=== PATIENT | male | born 1985 | race Caucasian/White ===

== ENCOUNTER 2022-03-06 17:19 | Emergency (ER) | payer OTHER, SELFPAY ==
--- NOTE | ~2022-03-06 | XR_ITS ---
EXAMINATION: XR CHEST CLINICAL INFORMATION: Chest pain COMPARISON: None TECHNIQUE: Frontal view of the chest was obtained. FINDINGS: The lungs are clear with no focal consolidation. No evidence of pneumothorax, pulmonary edema, or pleural effusions. The cardiomediastinal silhouette is unremarkable. No acute osseous findings. XR/XR chest 1V IMPRESSION: No acute cardiopulmonary findings.
[2022-03-06 17:21] VITALS: BP 144/90; PULSE 78; RESP 18; TEMP 36.3; O2SAT 100; BMI 24.3
--- NOTE | 2022-03-06 17:21 | ECG_ITS ---
Test Reason : CHEST PAIN Blood Pressure : / mmHG Vent. Rate : 087 BPM Atrial Rate : 087 BPM P-R Int : 146 ms QRS Dur : 086 ms QT Int : 346 ms P-R-T Axes : 052 039 039 degrees QTc Int : 416 ms Normal sinus rhythm Normal ECG No previous ECGs available Referred By: Generic ED Physician Electronically Signed By:ISAAC GOTTI
[2022-03-06 18:10] LABS: MANUAL DIFF FLAG NO
[2022-03-06 18:18] LABS: Basophils Percent Auto 0.6 % (0-2); Eosinophils Absolute Auto 0.1 X10*3/uL (0.0-0.4); Eosinophils Percent Auto 2.6 % (0-4); Hematocrit 41.8 % (42.0-52.0); Hemoglobin 14.5 g/dl (14.0-18.0); Imm Gran Abs Auto 0.01 X10*3/uL (0.00-0.03); Imm Gran Pct Auto 0.2 % (0.0-0.4); Lymphocytes Absolute Auto 1.8 X10*3/uL (1.2-4.9); Lymphocytes Percent Auto 36.5 % (20-40); Mean Corpuscular HGB Conc 34.7 g/dl (31.0-36.0); Mean Corpuscular Hemoglobin 32.7 pg (27.0-33.0); Mean Corpuscular Volume 94.4 fL (80.0-98.0); Mean Platelet Volume 10.4 fL (9.4-12.4); Monocytes Absolute Auto 0.4 X10*3/uL (0.1-1.2); Monocytes Percent Auto 6.9 % (2-11); Neutrophils Absolute Auto 2.7 x10*3/uL (2.0-8.3); Neutrophils Percent Auto 53.2 % (45-73); Platelet Count 162 X10*3/uL (160-400); Red Blood Count 4.43 X10*6/uL (4.60-5.80); Red Cell Distribution Width 11.9 % (11.0-16.0)
[2022-03-06 18:28] LABS: Alanine Aminotransferase 29 U/L (0-40); Albumin Level 4.3 g/dL (3.5-5.0); Alkaline Phosphatase 85 U/L (39-117); Anion Gap 13 (12-20); Aspartate Amino Transferase 29 U/L (5-37); Bilirubin Total 0.5 mg/dL (0.0-1.0); Blood Urea Nitrogen 14 mg/dL (9-16); Calcium 9.1 mg/dL (8.4-10.2); Carbon Dioxide 25 mmol/L (22-29); Chloride 109 mmol/L (96-108); Creatinine Clr Calc Pharmacy 113.2; Estimated Glomerular Filt Rate > 60; Glucose Random 118 mg/dL (60-115); Potassium 4.2 mmol/L (3.3-5.1); Sodium 143 mmol/L (135-145); Total Protein 7.1 g/dL (6.5-8.0)
[2022-03-06 18:32] LABS: Troponin-I High Sensitivity < 3.5 ng/L (<3.5-35.0)
[2022-03-06 19:32] VITALS: BP 127/62; PULSE 60; RESP 18; TEMP 36; O2SAT 98
[2022-03-07 00:41] VITALS: BP 151/86; PULSE 54; RESP 16; TEMP 36.4; O2SAT 97
--- NOTE | 2022-03-07 01:56 | ED.CHESTPAIN ---
HPI - Chest Pain General Chief Complaint: Chest Pain Stated Complaint: chest pain Time Seen by Provider: 03/07/22 01:15 Source: patient Mode of arrival: ambulatory Limitations: no limitations History of Present Illness HPI narrative: 37 yo male hx of anxiety here with c/o taking 3 doses of naprosyn yesterday then noted burning in his chest. He didn't feel well all day. He didn't go to work. He states this feels different from his prior anxiety. No recent travel or procedures. He took a negative home COVID test. MD complaint: chest pain Onset (ago): hour(s) (24) Timing of current episode: constant Prior episodes: Yes Onset: during rest Pain location: substernal Pain radiation: none Severity: moderate Quality: burning Relieving factors: nothing Exacerbating factors: nothing Context: other (started after taking 3 pill unknown mg of naprosyn) Treatment prior to arrival: none Related Data Previous Rx's Medication Instructions Recorded famotidine 20 mg tablet (Pepcid) 20 mg PO DAILY PRN abdominal 03/07/22 discomfort #30 tabs Allergies Allergy/AdvReac Type Severity Reaction Status Date / Time No Known Allergies Allergy Verified 03/06/22 17:22 Review of Systems Review of Systems: Constitutional : No Weight loss, No Fever, No Chills ENT/Mouth : No sore throat, No Rhinorrhea Eyes: No Eye Pain, No Swelling Cardiovascular : pos Chest Pain, pos SOB, no Dyspnea on Exertion, No Orthopnea, No Edema, No Palpitations Respiratory : No Cough, No Sputum Gastrointestinal : no Nausea, No Vomiting, No Diarrhea, No abdominal Pain, No Hematochezia, No Melena Genitourinary : No Dysuria, No Urinary Frequency Musculoskeletal : No joint pain, No Myalgias, No Joint Swelling Skin : No Skin Lesions, No rash Neuro : No Weakness, No Numbness, No Dizziness, No Headache Psych : No Anxiety/Panic, No Depression Heme/Lymph: No Bruising, No Lymphadenopathy Endocrine : No Polyuria, No Polydipsia All other systems reviewed and are negative [facility], [facility] Past Medical History Attestation statement: The following information was validated with the patient. Medical History Anxiety Social History Social History (Updated 03/07/22 @ 02:12 by Ann-Marie Michaela, DO) Patient Tobacco Use Status: Never used Tobacco Advance Directives: No Advance Directives Information Provided: No Physical Exam Vital Signs: Vital Signs: Last Vital Signs Temp 97.8 F 03/07/22 02:00 Pulse 57 03/07/22 02:00 Resp 16 03/07/22 02:00 BP 134/78 03/07/22 02:00 Pulse Ox 98 03/07/22 02:00 O2 Del Method 03/07/22 02:00 BMI result Body Mass Index 24.3 Appearance: Alert. Oriented X3. No acute distress. Anxious Eyes: Pupils equal, round and reactive to light. ENT: Pharynx normal. Neck: Normal inspection. Neck supple. CVS: Normal heart rate and rhythm. Pulses normal. Respiratory: No respiratory distress. Breath sounds normal. Abdomen: Soft and nontender. Skin: Skin warm and dry. Normal skin color. Normal skin turgor. Extremities: No lower extremity edema. No calf ttp Neuro: Oriented X 3. No motor deficit. No sensory deficit. Course Course Course Narrative: negative workup feels better stable for DC COVID negative MDM - Chest Pain MDM Narrative Medical decision making narrative: 37 yo male with anxiety here with atypical chest pain that is burning following naprosyn use - at this time PERC negative no ACS risk factors pain > 6 hours with nonischemic EKG and neg trop. He is PERC negative, distal pulses bounding doubt dissection - will obtain CXR and COVID swab. Treat for possible GI upset following naprosyn use. Lab Data Result diagrams: 03/06/22 18:06 03/06/22 18:06 Labs: Lab Results 03/06/22 03/06/22 03/06/22 Range/Units 18:06 18:06 18:06 WBC 5.0 (4.8-10.8) X10*3/uL RBC 4.43 L (4.60-5.80) X10*6/uL Hgb 14.5 (14.0-18.0) g/dl Hct 41.8 L (42.0-52.0) % MCV 94.4 (80.0-98.0) fL MCH 32.7 (27.0-33.0) pg MCHC 34.7 (31.0-36.0) g/dl RDW 11.9 (11.0-16.0) % Plt Count 162 (160-400) X10*3/uL MPV 10.4 (9.4-12.4) fL Immature Gran % (Auto) 0.2 (0.0-0.4) % Neut % (Auto) 53.2 (45-73) % Lymph % (Auto) 36.5 (20-40) % [place] % (Auto) 6.9 (2-11) % Eos % (Auto) 2.6 (0-4) % Baso % (Auto) 0.6 (0-2) % Lymph # (Auto) 1.8 (1.2-4.9) X10*3/uL [place] # (Auto) 0.4 (0.1-1.2) X10*3/uL Eos # (Auto) 0.1 (0.0-0.4) X10*3/uL Baso # (Auto) 0.0 (0.0-0.2) X10*3/uL Abs Immat Gran (auto) 0.01 (0.00-0.03) X10*3/uL Absolute Neuts (auto) 2.7 (2.0-8.3) x10*3/uL Absolute Nucleated RBC 0.000 (0.0-0.012) X10*3/uL Nucleated RBC % (auto) 0.0 (0.0-0.2) /100WBC Sodium 143 (135-145) mmol/L Potassium 4.2 (3.3-5.1) mmol/L Chloride 109 H (96-108) mmol/L Carbon Dioxide 25 (22-29) mmol/L Anion Gap 13 (12-20) BUN 14 (9-16) mg/dL Creatinine 0.94 (0.5-1.4) mg/dL Estim Creat Clear Calc 113.2 Estimated GFR > 60 Random Glucose 118 H (60-115) mg/dL Calcium 9.1 (8.4-10.2) mg/dL Total Bilirubin 0.5 (0.0-1.0) mg/dL AST 29 (5-37) U/L ALT 29 (0-40) U/L Alkaline Phosphatase 85 (39-117) U/L Troponin I High Sens < 3.5 (<3.5-35.0) ng/L Total Protein 7.1 (6.5-8.0) g/dL Albumin 4.3 (3.5-5.0) g/dL COVID-19 ([facility]) (Negative) COVID-19 Clin Com 03/07/22 Range/Units 02:34 WBC (4.8-10.8) X10*3/uL RBC (4.60-5.80) X10*6/uL Hgb (14.0-18.0) g/dl Hct (42.0-52.0) % MCV (80.0-98.0) fL MCH (27.0-33.0) pg MCHC (31.0-36.0) g/dl RDW (11.0-16.0) % Plt Count (160-400) X10*3/uL MPV (9.4-12.4) fL Immature Gran % (Auto) (0.0-0.4) % Neut % (Auto) (45-73) % Lymph % (Auto) (20-40) % [place] % (Auto) (2-11) % Eos % (Auto) (0-4) % Baso % (Auto) (0-2) % Lymph # (Auto) (1.2-4.9) X10*3/uL [place] # (Auto) (0.1-1.2) X10*3/uL Eos # (Auto) (0.0-0.4) X10*3/uL Baso # (Auto) (0.0-0.2) X10*3/uL Abs Immat Gran (auto) (0.00-0.03) X10*3/uL Absolute Neuts (auto) (2.0-8.3) x10*3/uL Absolute Nucleated RBC (0.0-0.012) X10*3/uL Nucleated RBC % (auto) (0.0-0.2) /100WBC Sodium (135-145) mmol/L Potassium (3.3-5.1) mmol/L Chloride (96-108) mmol/L Carbon Dioxide (22-29) mmol/L Anion Gap (12-20) BUN (9-16) mg/dL Creatinine (0.5-1.4) mg/dL Estim Creat Clear Calc Estimated GFR Random Glucose (60-115) mg/dL Calcium (8.4-10.2) mg/dL Total Bilirubin (0.0-1.0) mg/dL AST (5-37) U/L ALT (0-40) U/L Alkaline Phosphatase (39-117) U/L Troponin I High Sens (<3.5-35.0) ng/L Total Protein (6.5-8.0) g/dL Albumin (3.5-5.0) g/dL COVID-19 ([facility]) Negative (Negative) COVID-19 Clin Com See Note ECG Data ECG #1: Attestation: I personally reviewed and interpreted this ECG as follows: ECG interpretation date: 03/07/22 ECG interpretation time: 01:56 Interpretation: Rate: 87 Rhythm: NSR [place]: normal Normal P waves. Normal RICHA. Normal QRS complex. ST T wave : normal no BOBBY qTC: normal prior studies: no acute ischemia The study has been interpreted contemporaneously by me. . Discharge Plan Discharge Clinical Impression: Atypical chest pain Patient Disposition: Home, Self-Care Instructions: Chest Pain (ED) Additional Instructions: return to ED for any worsening symptoms or concerns COVID swab negative EKG negative troponin test for heart negative avoid NSAIDs (naprosyn) for the next 5 days, tylenol is okay Prescriptions: New famotidine [Pepcid] 20 mg tablet 20 mg PO DAILY PRN (Reason: abdominal discomfort) Qty: 30 0RF Stand Alone Forms: Work/School Release
[2022-03-07 02:00] VITALS: BP 134/78; PULSE 57; RESP 16; TEMP 36.6; O2SAT 98
[2022-03-07] MEDS: Lidocaine HCl Viscous 2 % 15 ML SOLUTION MUCOUS MEM (02:28)
[2022-03-07] MEDS: Magnesium Hydrox/Alum Hydrox 30 ML ORAL.SUSP 15 ML PO (02:28)
[2022-03-07 02:55] LABS: COVID-19 Test Negative (Negative)
== END 2022-03-07 03:48 | disposition home or self-care (01) ==
PROVIDERS: Emergency Provider Emergency Medicine; PCP Internal Medicine
DX: R07.89 Other chest pain (principal); Z20.822 Contact with and (suspected) exposure to COVID-19; Z79.899 Other long term (current) drug therapy
CPT/HCPCS: 36415; 71045; 80053; 84484; 85025; 87635; 93005; 99283; 99285